=== PATIENT | female | born 2000 | race Two or more races ===

== ENCOUNTER 2024-07-03 00:58 | Emergency (ER) | payer MEDICAID, SELFPAY ==
[2024-07-03 00:59] VITALS: BMI 24.9
[2024-07-03 01:14] VITALS: BP 121/75; PULSE 82; RESP 18; TEMP 37.1; O2SAT 99
--- NOTE | 2024-07-03 01:23 | XR_ITS ---
Examination: Complete OB ultrasound, less than 14 weeks, transabdominal Date and time of exam: July 03, 2024 0241 hours INDICATIONS: Vaginal bleeding today Technique: Obstetrical ultrasound images less than 14 weeks performed via transabdominal imaging Findings: A normal shaped single intrauterine gestation is present in the uterus. CRL 1.9 cm corresponds to 8 weeks 3 days gestational age Cardiac motion 166 BPM Uterine fundal area of fibroid degeneration 3.7 cm Ultrasonographic survey of visible and placental structures unremarkable. Amniotic fluid volume appears appropriate for this estimated gestational age. Right ovary 3.1 cm arterial flow Left ovary obscured by bowel gas IMPRESSION: Viable intrauterine gestation 8 weeks 3 days.
[2024-07-03 02:08] LABS: Collection Type, Urine Clean Catch
[2024-07-03 02:11] LABS: Basophils % (Auto) 0 % (0-2.5); Eosinophils # (Auto) 0.1 Thou/mm3 (0.0-0.5); Eosinophils % (Auto) 1 % (0-10); Hematocrit 37.6 % (36.0-46.0); Hemoglobin 12.9 g/dL (12.0-16.0); Immature Granulocytes % (Auto) 0 % (0-0); Immature Granulocytes Auto 0.03 Thou/mm3 (0.00-0.00); Lymphocytes # (Auto) 2.1 Thou/mm3 (1.0-4.8); Lymphocytes % (Auto) 20 % (10-50); Mean Corpuscular HGB Conc 34.3 g/dl (31.0-37.0); Mean Corpuscular Hemoglobin 28.7 pg (25.0-35.0); Mean Corpuscular Volume 84 fL (80-100); Monocytes # (Auto) 0.6 Thou/mm3 (0.0-0.8); Monocytes % (Auto) 5 % (0-12); Neutrophils # (Auto) 7.8 Thou/mm3 (1.8-7.7); Neutrophils % (Auto) 73 % (37-80); Nucleated Red Blood Cell % 0 /100 WBC (0); Platelet Count 199 Thou/mm3 (140-440); RDW Standard Deviation 44.7 fL (36.4-46.3); Red Blood Count 4.49 Miln/mm3 (4.00-5.20); White Blood Count 10.7 Thou/mm3 (3.6-11.0)
[2024-07-03 02:27] LABS: Bacteria,Urine Rare; Bilirubin,Urine Negative (Negative); Blood,Urine 3+ (Negative); Clarity,Urine Turbid (Clear/Hazy); Color,Urine Colorless (Lt Yel-Yel); Glucose, Urine Negative (Negative); Ketones,Urine Trace (Negative); Leukocyte Esterase,Urine Positive (Negative); Nitrite,Urine Negative (Negative); PH,Urine 6.5 (5.0-7.0); Protein,Urine Negative (Neg - Trace); RBC,Urine 6 /hpf (0-3); Specific Gravity,Urine 1.005 (1.001-1.035); Squamous Epithelial Cell,Urine 4 /hpf (0-5); Urobilinogen,Urine Negative mg/dL (0.0-1.0); WBC,Urine 22 /hpf (0-5)
[2024-07-03 02:33] LABS: Alanine Aminotransferase 25 U/L (10-49); Albumin, Serum 4.8 gm/dL (3.5-5.0); Albumin/Globulin Ratio 1.5 (1.2-2.2); Alkaline Phosphatase 51 U/L (46-116); Anion Gap 11 (7-16); Aspartate Amino Transferase 22 U/L (0-34); BUN/Creatinine Ratio 8 Ratio (12-20); Bilirubin,Total 0.5 mg/dL (0.3-1.2); Blood Urea Nitrogen 5 mg/dL (9-23); Calcium 10.2 mg/dL (8.3-10.6); Calcium (Corrected) 10.2 mg/dL (8.5-10.1); Chloride 106 mMol/L (98-107); Creatinine (Component) 0.6 mg/dL (0.6-1.3); Estimated Creatinine Clearance 136.1 mL/min (>60); Globulin 3.1 gm/dL (2.3-3.5); Glucose 90 mg/dL (74-106); Osmolality,Calculated 274 (275-295); Potassium 3.5 mMol/L (3.4-5.1); Sodium 139 mMol/L (136-145); Total Protein 7.9 gm/dL (5.7-8.2); eGFR > 60 See Note
[2024-07-03 03:19] LABS: Beta HCG,Quantitative 128023 mIU/mL (<5.0)
--- NOTE | 2024-07-03 04:01 | PD.EDVAGBL ---
ED OB Contraction Preg RMI/HPI General Chief complaint: Urogenital-Female Stated complaint: VAGINAL BLEEDING 8WEEKS PREG Time Seen by Provider: 07/03/24 01:23 Arrival date/time: 07/03/24 00:58 24F at approximately 8 weeks and with no significant PMH presents to ED with 2 days of pelvic cramping and vaginal spotting. Patient denies dysuria. Limitations: no limitations Related Data Allergies Allergy/AdvReac Type Severity Reaction Status Date / Time NKA* Allergy Uncoded 02/07/15 18:22 Review of Systems Review of Systems Systems Reviewed: All systems reviewed, normal except as documented Constitutional Constitutional: Reports system reviewed and no additional complaints, except as documented, Denies fever(s) and Denies headache(s) ENT Ears, Nose, Mouth, and Throat: Denies disequilibrium and Denies headache(s) Cardiovascular Cardiovascular: Reports system reviewed and no additional complaints, except as documented, Denies chest pain and Denies dyspnea Respiratory Respiratory: Reports system reviewed and no additional complaints, except as documented, Denies cough and Denies dyspnea Gastrointestinal Gastrointestinal: Reports system reviewed and no additional complaints, except as documented, Denies abdominal pain, Denies nausea and Denies vomiting Genitourinary Genitourinary: Reports as per HPI, Reports abnormal vaginal bleeding and Reports pelvic pain Neurologic Neurologic: Reports system reviewed and no additional complaints, except as documented, Denies confusion, Denies disequilibrium and Denies headache(s) Psychiatric Psychiatric: Denies confusion Past Medical History Social History SMOKING STATUS: Never smoker ED Exam General Limitations: Present no limitations General appearance: Present alert and in no apparent distress Head Head exam: Present atraumatic Eye Eye exam: Present normal appearance, PERRL and EOMI ENT ENT exam: Present normal exam, normal oropharynx and mucous membranes moist Neck Neck exam: Present normal inspection, full ROM and trachea midline Chest Chest inspection: Present normal inspection and symmetric chest wall rise Respiratory Respiratory exam: Present normal lung sounds bilaterally Cardiovascular Cardiovascular exam: Present regular rate, normal rhythm and normal heart sounds Abdominal Exam Abdominal exam: Present soft and normal bowel sounds Extremities Exam Extremities exam: Present normal inspection and full ROM Back Exam Back exam: Present normal inspection and full ROM Neurological Exam Neurological exam: Present alert, oriented X3 and CN II-XII intact Psychiatric Psychiatric exam: Present normal affect and normal mood Skin Skin exam: Present warm, dry, intact and normal color Course Quality Measures none Orders Category Date Time Status US OB <= 14 weeks fetus Stat Exams 07/03/24 01:23 Taken ABO/RH Type Stat Lab 07/03/24 01:38 Completed Beta HCG,Quantitative Stat Lab 07/03/24 01:38 Completed CBC Stat Lab 07/03/24 01:38 Completed CMP [Comprehensive Metabolic Panel] Stat Lab 07/03/24 01:38 Completed UA [Urinalysis] Stat Lab 07/03/24 02:02 Completed Urine Culture Stat Lab 07/03/24 02:02 Received Vital Signs Vital signs: Vital Signs Temperature 98.7 F 07/03/24 01:14 Pulse Rate 82 07/03/24 01:14 Respiratory Rate 18 07/03/24 01:14 Blood Pressure 121/75 07/03/24 01:14 Pulse Oximetry (%) 99 07/03/24 01:14 Oxygen Delivery Method Room Air 07/03/24 01:14 O2 at 99% on RA and WNLs Vaginal Bleeding MDM Narrative MDM Narrative: 24F at approximately 8 weeks and with no significant PMH presents to ED with 2 days of pelvic cramping and vaginal spotting. Patient denies dysuria. Physical exam reveals no pelvic tenderness. Patient is afebrile, calm, and alert. No leukocytosis or anemia. CMP unremarkable. Beta HCG WNLs. UA some WBCs with pending UC. Patient has access to online portal. US shows normal IUP with normal FHR. There is also a separate non-specific solid 3 cm mass in uterus based on [facility] report. Spoke to Dr. Stuart, OBGYN, who agrees it is likely a fibroid. No MRI needed at this time. [employer] given. Patient data External records reviewed:: None Clinical information provided by:: patient Social determinants that could affect healthcare access:: none Patient has the following chronic illnesses:: none How is presenting disease/condition affected by chronic disease/condition?: no chronic disease Evaluation data The following diagnostics were reviewed and interpreted by me:: lab results and radiology exam(s) Lab and/or radiology exams considered but not ordered:: ordered Interpretation Summary: above Medications / Prescriptions Medications or Prescriptions considered but not ordered:: not ordered Medication administrations:: n/a Consultations Consultation(s) initiated? (list below): Yes Diagnosis Vaginal Bleeding Differential Diagnosis: missed , threatened , dysfunctional uterine bleeding, menometrorrhagia, incomplete , ectopic without intrauterine , vaginal bleeding and other (pelvic mass) Most likely diagnosis given after review of the tests above:: pelvic mass and vaginal bleeding. Admission Indicated Admission indicated?: not indicated Admission Request Was there a request for admission?: No Disposition Plan Disposition Plan: Discharge Discharge Attestation Discharge Attestation: The patient and all family members were given an opportunity to ask questions and understood the discharge instructions. Discharge instructions specifically effects, indications for sooner follow up or return to the emergency department, and the expected course of current diagnosis. Patient condition: Stable Discharge Plan Plan Patient Disposition: HOME (Self Care) Disposition Comment: Stable Prescriptions/Referrals Referrals: No Primary/Family,Physician [Primary Care Provider] - In 1 week Problem List Clinical Impression: Vaginal bleeding, Pelvic mass Patient/Caregiver Discharge Instructions Education Materials: Understanding Uterine Bleeding Additional Instructions: Please follow-up with PCP/OBGYN within 24-48 hours and return immediately if symptoms worsen. Mass is most likely a fibroid. Print Language: [place] Islander Stand Alone Forms: Patient Portal Info Letter DARNELL/GUILLE Supervising Physician RICH Supervising Physician: Dr. Fritz
--- NOTE | 2024-07-03 04:35 | PRELIM_ITS ---
Obstetric ultrasound (transabdominal ) with doppler and wave doppler spectral analysis. July 03, 2024 at 0241 hours Clinical history: Cramping/bleeding; 8 weeks. Technique: Real-time ultrasound was performed using Duplex scanning including arterial inflow, venous outflow, color and spectral Doppler analysis of both ovaries. Comparison: No prior study is available for comparison. Findings: There is an intrauterine gestation with a single live fetus of mean gestational age 8 weeks and 3 days (CRL= 1.9 cm). cardiac activity is present at heart rate of 166 beats per minute. The yolk sac is visualized. Solid mass at the uterine fundus measuring 2.9 x 3.7 x 3.1 cm. The uterus measures 9.5 x 6.0 x 6.6 cm. The right ovary measures 3.1 x 2.2 x 2.3 cm and is unremarkable. The left ovary was not visualized. Normal blood flow in the right ovary with normal wave Doppler spectral analysis. There is no free fluid in the pelvis. Impression: Intrauterine gestation with a single live fetus of mean gestational age 8 weeks and 3 days. Solid mass at the uterine fundus measuring 2.9 x 3.7 x 3.1 cm. Further evaluation should be considered. Report Electronically Signed By: Alex Clinton 07/03/2024 4:34:57 AM [EST]
== END 2024-07-03 04:59 | disposition home or self-care (01) ==
PROVIDERS: Physician Assistant; Emergency Provider Emergency Medicine
DX: O20.9 Hemorrhage in early pregnancy, unspecified (principal); D25.9 Leiomyoma of uterus, unspecified; Z3A.08 8 weeks gestation of pregnancy
CPT/HCPCS: 36415; 76801; 80053; 81001; 84702; 85025; 86900; 86901; 87086; 99284

== ENCOUNTER 2025-01-10 14:18 | Observation (INO) | payer MEDICAID, SELFPAY ==
[2025-01-10] VITALS (23 sets, daily range): BP systolic 116; BP diastolic 76; PULSE 68–106; RESP 20–98; TEMP 37; O2SAT 97–100; BMI 26.4
--- NOTE | 2025-01-10 14:52 | XR_ITS ---
Examination: Complete OB ultrasound greater than 14 weeks Date and time of exam: January 10, 2025, 1502 hrs. Indications: Lower back pelvic pain beginning today, labor evaluation Findings: Viable intrauterine single fetus with single amniotic sac presentation cephalic Cardiac motion 131 BPM. Placenta anterior grade 3. Umbilical cord insertion seen. Amniotic fluid index 8.7 cm. Cervix obscured by the fetus. Ovaries obscured by bowel gas. Composite estimated gestational age based on BPD, head circumference, abdominal circumference, femur length is 35 weeks 1 day Estimated weight 2595.9 g. Survey of intracranial anatomy, spinal anatomy, abdominal anatomy, four-chamber heart performed with no abnormalities identified. Impression: Viable intrauterine gestation cephalic presentation.
--- NOTE | 2025-01-10 15:56 | ESHP_ITS ---
RE: ZOFIA FERGUSON : 2000 DATE OF TRIAGE: 01/10/2025 HISTORY OF PRESENT ILLNESS: This is a 24-year-old 1, para 0 with due date 02/07 with intrauterine at 36 weeks and 0 days who presents complaining of contractions and is noted to have contractions on the monitor and a cervix of 3 cm. She denies any leaking or bleeding. She reports normal movement. Her care was complicated by gestational thrombocytopenia and lower extremity edema without preeclampsia and normal blood pressures. ALLERGIES: NO KNOWN DRUG ALLERGIES. MEDICATIONS: 1. multivitamin 1 p.o. daily. 2. Omeprazole 20 mg 1 p.o. daily, p.r.n. heartburn. 3. Ferrous sulfate 325 mg 1 p.o. daily. PAST MEDICAL HISTORY: Gestational thrombocytopenia, lower extremity edema, iron deficiency anemia, gastroesophageal reflux disease, constipation, rubella nonimmune, vitamin D deficiency. ALLERGIES: NO KNOWN DRUG ALLERGIES. PAST SURGICAL HISTORY: Denies. FAMILY HISTORY: Denies. REVIEW OF SYSTEMS: She denies any chest pain, palpitations, cough, fever, or shortness of breath or lower extremity pain. She denies any headache, change of vision or right upper quadrant pain. PHYSICAL EXAMINATION: VITAL SIGNS: Blood pressure 122/80, heart rate 88, respirations 18, temperature 98.2. HEENT: Oropharynx and sclerae are clear. LUNGS: Clear to auscultation bilaterally. HEART: Regular rate and rhythm. ABDOMEN: Gravid consistent with estimated weight of 6 pounds. PELVIC: See RN notes. EXTREMITIES: Nontender. SKIN: No gross rashes or lesions. NEUROLOGIC: No focal deficit. ASSESSMENT: Intrauterine at 36 weeks and 0 days, early labor versus false labor. PLAN: Ultrasound to confirm presentation. Monitor for cervical change. Pending subsequent results. DT: 15:07:59 TT: 15:54:00 Ref: [id number] - TID: [id number] MTDD
== END 2025-01-10 18:45 | disposition home or self-care (01) ==
PROVIDERS: Admitting Provider Specialist; Visit Provider Specialist
DX: O47.03 False labor before 37 completed weeks of gestation, third trimester (principal); O99.113 Other diseases of the blood and blood-forming organs and certain disorders involving the immune mechanism complicating pregnancy, third trimester; D69.6 Thrombocytopenia, unspecified; O12.03 Gestational edema, third trimester; Z3A.36 36 weeks gestation of pregnancy
CPT/HCPCS: 59025; 59899; 76805

== ENCOUNTER 2025-01-18 23:19 | Observation (INO) | payer MEDICAID, SELFPAY ==
[2025-01-18] VITALS (8 sets, daily range): BP systolic 134; BP diastolic 83; PULSE 75–94; RESP 19–98; TEMP 36.8; O2SAT 96–99
[2025-01-19] VITALS (13 sets, daily range): BP systolic 102–114; BP diastolic 57–70; PULSE 59–115; RESP 17–18; TEMP 36.8–36.9; O2SAT 96–99; BMI 27.3
[2025-01-19] MEDS: RINGERS LACTATED 1000 ML 1,000 ML 100 ML IV (03:22)
[2025-01-19 03:47] LABS: Collection Type, Urine Clean Catch
[2025-01-19 03:51] LABS: Basophils # (Auto) 0.0 Thou/mm3 (0.0-0.2); Basophils % (Auto) 0 % (0-2.5); Eosinophils # (Auto) 0.1 Thou/mm3 (0.0-0.5); Eosinophils % (Auto) 1 % (0-10); Hematocrit 31.2 % (36.0-46.0); Hemoglobin 10.3 g/dL (12.0-16.0); Immature Granulocytes Auto 0.04 Thou/mm3 (0.00-0.00); Lymphocytes # (Auto) 1.4 Thou/mm3 (1.0-4.8); Lymphocytes % (Auto) 16 % (10-50); Mean Corpuscular HGB Conc 33.0 g/dl (31.0-37.0); Mean Corpuscular Hemoglobin 29.1 pg (25.0-35.0); Mean Corpuscular Volume 88 fL (80-100); Monocytes # (Auto) 0.6 Thou/mm3 (0.0-0.8); Monocytes % (Auto) 7 % (0-12); Neutrophils # (Auto) 6.2 Thou/mm3 (1.8-7.7); Neutrophils % (Auto) 75 % (37-80); Nucleated Red Blood Cell # 0.00 Thou/mm3 (0.00-0.00); Nucleated Red Blood Cell % 0 /100 WBC (0); Platelet Count 140 Thou/mm3 (140-440); RDW Standard Deviation 45.9 fL (36.4-46.3); Red Blood Count 3.54 Miln/mm3 (4.00-5.20); White Blood Count 8.3 Thou/mm3 (3.6-11.0)
[2025-01-19 04:09] LABS: Bacteria,Urine Rare; Bilirubin,Urine Negative (Negative); Blood,Urine Negative (Negative); Clarity,Urine Clear (Clear/Hazy); Color,Urine Lt-Yellow (Lt Yel-Yel); Glucose, Urine Negative (Negative); Ketones,Urine Negative (Negative); Leukocyte Esterase,Urine Positive (Negative); Nitrite,Urine Negative (Negative); PH,Urine 7.0 (5.0-7.0); Protein,Urine Negative (Neg - Trace); RBC,Urine 1 /hpf (0-3); Specific Gravity,Urine 1.016 (1.001-1.035); Squamous Epithelial Cell,Urine 2 /hpf (0-5); Urobilinogen,Urine Negative mg/dL (0.0-1.0); WBC,Urine 7 /hpf (0-5)
--- NOTE | 2025-01-19 04:09 | PC.NURSE ---
01/19/25 RN called to room due to patient having questions about possible going home. Patient states her contractions and pain has gone down, she feels better. Patient requested to hold epidural at this time. IV bolus stopped per patient request. Education provided about labor process. Patient states she had sex prior to coming to [facility] yesterday. She states last time she came to triage on 01/10/25 was due to contractions after having sex. MD will be making morning rounds in the am. Patient states she will wait to speak with MD about going home in the morning if she does not go into labor.
[2025-01-19 04:18] LABS: Fibrinogen 423 mg/dL (175-375); INR 0.9 (0.9-1.3); Partial Thromboplastin Time 25.7 Seconds (22.0-36.0); Prothrombin Time 9.8 Seconds (9.0-12.2)
[2025-01-19 04:19] LABS: Sperm,Urine Present
[2025-01-19 04:23] LABS: Alanine Aminotransferase 8 U/L (10-49); Albumin, Serum 3.7 gm/dL (3.5-5.0); Albumin/Globulin Ratio 1.5 (1.2-2.2); Alkaline Phosphatase 150 U/L (46-116); Anion Gap 11 (7-16); Aspartate Amino Transferase 17 U/L (0-34); BUN/Creatinine Ratio 8 Ratio (12-20); Bilirubin,Total 0.3 mg/dL (0.3-1.2); Blood Urea Nitrogen 5 mg/dL (9-23); Calcium 8.5 mg/dL (8.3-10.6); Calcium (Corrected) 8.7 mg/dL (8.5-10.1); Carbon Dioxide 22.6 mMol/L (20.0-31.0); Chloride 110 mMol/L (98-107); Creatinine (Component) 0.6 mg/dL (0.6-1.3); Estimated Creatinine Clearance 142.0 mL/min (>60); Globulin 2.4 gm/dL (2.3-3.5); Glucose 91 mg/dL (74-106); LDH (Lactate Dehydrogenase) 174 U/L (120-246); Osmolality,Calculated 284 (275-295); Potassium 3.7 mMol/L (3.4-5.1); Sodium 144 mMol/L (136-145); Total Protein 6.1 gm/dL (5.7-8.2); Uric Acid 5.2 mg/dL (3.1-7.8); eGFR > 60 See Note
--- NOTE | 2025-01-19 08:23 | PD.LDPN ---
Documentation for date of: 01/19/25 OB Labor Progress Note Pain Control Comments: Pelvic Exam Dilation (cm): 4 Effacement (%): 90 station: -1 Amniotic membrane status: Intact Contractions Monitor mode: External Contraction frequency: 4-6 Contraction intensity: Mild Status status: Category l Assessment and Plan Comments: No cervical change for the past several hours consistent with False Labor Patient feels comfortable and wants to go home therefore we will discharge her home. Advised to return if any leaking of fluid, or persistent contractions, or vaginal bleeding or decreased movement.
--- NOTE | 2025-01-19 08:25 | PD.LDDS ---
DS: Providers Provider Date of admission: 01/19/25 02:35 Primary care physician: Physician No Primary/Family Admitting Provider: Rylan Borrego MD Attending Provider on Admission: Rylan Borrego MD Attending Provider on DC: Rylan Borrego MD Discharging Provider: Rylan Borrego MD DS: Diagnosis Discharge Diagnosis (1) False labor at or after 37 completed weeks of gestation: Status: Acute Problem List Completed Was Problem List Reviewed/Reconciled?: Yes Summary/Hosp Course Time Spent with Patient Time attestation: Total time spent providing and/or coordinating discharge services: Exam Vital Signs Temp Pulse Resp BP Pulse Ox O2 Del Method 98.3 F 76 18 106/70 97 Room Air 01/19/25 07:30 01/19/25 07:36 01/19/25 07:30 01/19/25 07:36 01/19/25 05:05 01/19/25 07:30 Discharge Plan Plan Patient Disposition: HOME (Self Care) Patient condition on transfer: Stable Prescriptions/Referrals Prescriptions/Med Rec: No Action ferrous sulfate 325 mg (65 mg iron) tablet 325 mg PO QDAY Patient Comments: TAKE 1 TABLET BY MOUTH EVERY DAY PNV no.95-ferrous fumarate-FA [] 28 mg iron- 800 mcg tablet 1 tab PO QDAY Patient Comments: TAKE 1 TABLET BY MOUTH EVERY DAY FOR 90 DAYS cholecalciferol (vitamin D3) 25 mcg (1,000 unit) tablet 25 mcg PO DAILY Patient Comments: TAKE 1 TABLET BY MOUTH EVERY DAY Referrals: No Primary/Family,Physician [Primary Care Provider] Patient/Caregiver Discharge Instructions Education Materials: Antepartum Discharge Print Language: Kittitian Stand Alone Forms: [employer] Info., Patient Portal Info Letter Discharge Order Discharge Orders: Discharge (Routine); Ordered 01/19/25 Ordered By: Rylan Borrego Planned Discharge Date 01/19/25
[2025-01-19 11:46] LABS: Syphilis Nonreactive (Nonreactive)
== END 2025-01-19 08:15 | disposition home or self-care (01) ==
PROVIDERS: Admitting Provider Specialist; Visit Provider Specialist
DX: O47.1 False labor at or after 37 completed weeks of gestation (principal); Z3A.37 37 weeks gestation of pregnancy
CPT/HCPCS: 36415; 59025; 59899; 80053; 81001; 83615; 84550; 85025; 85384; 85610; 85730; 86780; 86850; 86900; 86901; G0378; J7120

== ENCOUNTER 2025-01-25 23:23 | Observation (INO) | payer MEDICAID, SELFPAY ==
--- NOTE | 2025-01-19 15:02 | ESHP_ITS ---
RE: ZOFIA FERGUSON : 2000 DATE OF ADMISSION: 01/28/2025 HISTORY OF PRESENT ILLNESS: This is a 24-year-old 1 para 0 with due date of 02/07/2025 with intrauterine at 38 weeks and 4 days, who presents to the office today complaining of contractions and is noted to be 6 cm dilated with contractions every 2-3 minutes. She denies any leaking or bleeding. She reports normal movement. Her care was complicated by gestational thrombocytopenia with platelet count as low as 131,000. She also has iron deficiency anemia. ALLERGIES: NO KNOWN DRUG ALLERGIES. MEDICATIONS: 1. multivitamin 1 p.o. daily. 2. Ferrous sulfate 325 mg 1 p.o. daily. 3. Omeprazole 20 mg 1 p.o. daily p.r.n. heartburn. 4. vitamin 1 p.o. daily. FAMILY HISTORY: Denies. PAST SURGICAL HISTORY: Denies. REVIEW OF SYSTEMS: She denies any chest pain, palpitations, cough, fever, shortness of breath or lower extremity pain. She denies any headache, change of vision or right upper quadrant pain. PHYSICAL EXAMINATION: VITAL SIGNS: Blood pressure is 134/82, heart rate 88, respiration 18, and temperature 98.6. HEENT: Oropharynx and sclerae are clear. LUNGS: Clear to auscultation bilaterally. HEART: Regular rate and rhythm. ABDOMEN: Gravid consistent with estimated weight 2700 g. PELVIC: 6.5/100/0/vtx/AROM clear. EXTREMITIES: Nontender. SKIN: No gross rashes or lesions. NEUROLOGICAL: No focal deficit. ASSESSMENT AND PLAN: Intrauterine at 38 weeks and 4 days, Active Labor. Anticipate . Informed consent obtained. Patient aware of the risks , complications, alternatives and benefits of OVD and C/S and agrees with these mode of delivery if indicated. DT: 05:59:13 TT: 06:20:00 Ref: [id number] - TID: [id number] [facility]
[2025-01-25 23:28] VITALS: BP 129/79; PULSE 72; RESP 19; RESP 98; TEMP 37.3; BMI 28.3
[2025-01-25 23:40] VITALS: BP 129/79; PULSE 71; PULSE 73; O2SAT 98
[2025-01-25 23:45] VITALS: PULSE 67; O2SAT 99
[2025-01-25 23:50] VITALS: PULSE 69; O2SAT 98
[2025-01-25 23:55] VITALS: PULSE 80; O2SAT 100
[2025-01-25 23:58] VITALS: PULSE 70; O2SAT 93
[2025-01-26] VITALS (18 sets, daily range): BP systolic 114–120; BP diastolic 59–74; PULSE 65–83; RESP 16; TEMP 36.6–36.9; O2SAT 91–100; BMI 28.3
[2025-01-26 02:44] LABS: Basophils # (Auto) 0.0 Thou/mm3 (0.0-0.2); Basophils % (Auto) 0 % (0-2.5); Eosinophils # (Auto) 0.0 Thou/mm3 (0.0-0.5); Eosinophils % (Auto) 0 % (0-10); Hematocrit 31.3 % (36.0-46.0); Hemoglobin 10.3 g/dL (12.0-16.0); Immature Granulocytes Auto 0.03 Thou/mm3 (0.00-0.00); Lymphocytes # (Auto) 1.4 Thou/mm3 (1.0-4.8); Lymphocytes % (Auto) 14 % (10-50); Mean Corpuscular HGB Conc 32.9 g/dl (31.0-37.0); Mean Corpuscular Hemoglobin 28.7 pg (25.0-35.0); Mean Corpuscular Volume 87 fL (80-100); Monocytes # (Auto) 0.7 Thou/mm3 (0.0-0.8); Monocytes % (Auto) 7 % (0-12); Neutrophils # (Auto) 7.8 Thou/mm3 (1.8-7.7); Neutrophils % (Auto) 79 % (37-80); Nucleated Red Blood Cell # 0.00 Thou/mm3 (0.00-0.00); Nucleated Red Blood Cell % 0 /100 WBC (0); Platelet Count 137 Thou/mm3 (140-440); RDW Standard Deviation 44.3 fL (36.4-46.3); Red Blood Count 3.59 Miln/mm3 (4.00-5.20); White Blood Count 9.9 Thou/mm3 (3.6-11.0)
[2025-01-26 03:22] LABS: Syphilis Nonreactive (Nonreactive)
--- NOTE | 2025-01-26 03:39 | PD.LDHP ---
Documentation for date of: 01/26/25 OB Labor/Induct. HPI History of Present Illness History of present illness: RE: ZOFIA FERGUSON : 2000 DATE OF ADMISSION: 01/17/2025 HISTORY OF PRESENT ILLNESS: This is a 24-year-old 1 para 0 with due date of 02/07/2025 with intrauterine at 38 weeks and 2 days, who presents to labor and delivery complaining of contractions and is noted to be 3 cm dilated with contractions every 2-3 minutes. She denies any leaking or bleeding. She reports normal movement. Her care was complicated by gestational thrombocytopenia with platelet count as low as 131,000. She also has iron deficiency anemia. ALLERGIES: NO KNOWN DRUG ALLERGIES. MEDICATIONS: 1. multivitamin 1 p.o. daily. 2. Ferrous sulfate 325 mg 1 p.o. daily. 3. Omeprazole 20 mg 1 p.o. daily p.r.n. heartburn. 4. vitamin 1 p.o. daily. FAMILY HISTORY: Denies. PAST SURGICAL HISTORY: Denies. REVIEW OF SYSTEMS: She denies any chest pain, palpitations, cough, fever, shortness of breath or lower extremity pain. She denies any headache, change of vision or right upper quadrant pain. PHYSICAL EXAMINATION: VITAL SIGNS: Blood pressure is 134/82, heart rate 88, respiration 18, and temperature 98.6. HEENT: Oropharynx and sclerae are clear. LUNGS: Clear to auscultation bilaterally. HEART: Regular rate and rhythm. ABDOMEN: Gravid consistent with estimated weight 2800 g. PELVIC: See RN notes. EXTREMITIES: Nontender. SKIN: No gross rashes or lesions. NEUROLOGICAL: No focal deficit. ASSESSMENT AND PLAN: Intrauterine at 38 weeks and 2 days, early labor v. False Labor. Monitor for cervical change and determine if she will stay or go home. DT: 05:59:13 TT: 06:20:00 Ref: [id number] - TID: [id number] Labs Labs: Negative: RPR, Hepatitis B, Rubella Titre, HIV, Chlamydia, Gonorrhea and Group Beta Strep and Unknown: Herpes Type 1, Herpes Type 2 and Covid-19 Meds Home Medications and Allergies Home Medications ?Medication ?Instructions ?Recorded ?Confirmed ?Type ferrous sulfate 325 mg (65 mg 325 mg PO QDAY 01/10/25 01/26/25 History iron) tablet vit no.95-ferrous 1 tab PO QDAY 01/10/25 01/26/25 History fumarate 28 mg-folic acid 800 mcg tablet () cholecalciferol (vitamin D3) 25 25 mcg PO DAILY 01/18/25 01/26/25 History mcg (1,000 unit) tablet Allergies Allergy/AdvReac Type Severity Reaction Status Date / Time No Known Allergies Allergy Verified 01/26/25 00:12 OB Exam Physical Exam Vital signs: Temp Pulse Resp BP Pulse Ox 99.1 F 80 19 114/59 L 98 01/25/25 23:28 01/26/25 02:12 01/25/25 23:28 01/26/25 02:12 01/26/25 01:00 OB Results Labs 01/26/25 00:20 Labs: Short CBC 01/26/25 Range/Units 00:20 WBC 9.9 (3.6-11.0) Thou/mm3 Hgb 10.3 L (12.0-16.0) g/dL Hct 31.3 L (36.0-46.0) % Plt Count 137 L (140-440) Thou/mm3
--- NOTE | 2025-01-26 07:36 | PD.LDPN ---
Documentation for date of: 01/26/25 OB Labor Progress Note Pelvic Exam Dilation (cm): 4 Effacement (%): 90 station: 0 Amniotic membrane status: Intact Contractions Monitor mode: External Contraction frequency: Occasional Contraction intensity: Moderate Status status: Category l Assessment and Plan Comments: False labor versus early labor
== END 2025-01-26 09:17 | disposition home or self-care (01) ==
PROVIDERS: Admitting Provider Specialist; Visit Provider Specialist
DX: O47.1 False labor at or after 37 completed weeks of gestation (principal); O99.113 Other diseases of the blood and blood-forming organs and certain disorders involving the immune mechanism complicating pregnancy, third trimester; D69.6 Thrombocytopenia, unspecified; O99.013 Anemia complicating pregnancy, third trimester; D50.9 Iron deficiency anemia, unspecified; Z3A.38 38 weeks gestation of pregnancy; Z79.899 Other long term (current) drug therapy
CPT/HCPCS: 36415; 59899; 85025; 86780; 86850; 86900; 86901; G0378

== ENCOUNTER 2025-01-28 10:32 | Inpatient (IN) | payer MEDICAID, SELFPAY ==
[2025-01-28] VITALS (108 sets, daily range): BP systolic 108–146; BP diastolic 60–99; PULSE 64–128; RESP 13–22; TEMP 36.8–37.3; O2SAT 89–100; BMI 28.3
[2025-01-28 12:26] LABS: Basophils # (Auto) 0.0 Thou/mm3 (0.0-0.2); Basophils % (Auto) 0 % (0-2.5); Eosinophils # (Auto) 0.1 Thou/mm3 (0.0-0.5); Eosinophils % (Auto) 1 % (0-10); Hematocrit 31.6 % (36.0-46.0); Hemoglobin 10.5 g/dL (12.0-16.0); Immature Granulocytes Auto 0.03 Thou/mm3 (0.00-0.00); Lymphocytes # (Auto) 1.6 Thou/mm3 (1.0-4.8); Lymphocytes % (Auto) 21 % (10-50); Mean Corpuscular HGB Conc 33.2 g/dl (31.0-37.0); Mean Corpuscular Hemoglobin 29.0 pg (25.0-35.0); Mean Corpuscular Volume 87 fL (80-100); Monocytes # (Auto) 0.5 Thou/mm3 (0.0-0.8); Monocytes % (Auto) 6 % (0-12); Neutrophils # (Auto) 5.3 Thou/mm3 (1.8-7.7); Neutrophils % (Auto) 71 % (37-80); Nucleated Red Blood Cell # 0.00 Thou/mm3 (0.00-0.00); Nucleated Red Blood Cell % 0 /100 WBC (0); Platelet Count 136 Thou/mm3 (140-440); RDW Standard Deviation 44.4 fL (36.4-46.3); Red Blood Count 3.62 Miln/mm3 (4.00-5.20); White Blood Count 7.5 Thou/mm3 (3.6-11.0)
[2025-01-28 13:01] LABS: Syphilis Nonreactive (Nonreactive)
[2025-01-28] MEDS: RINGERS LACTATED 1000 ML 1,000 ML 100 ML IV (13:10)
--- NOTE | 2025-01-28 15:32 | PD.LDPN ---
Documentation for date of: 01/28/25 OB Labor Progress Note Pain Control Comments: Epidural Pelvic Exam Dilation (cm): 10 Effacement (%): 100 station: +2 Amniotic membrane status: Ruptured Contractions Monitor mode: External Contraction frequency: 4-7 Contraction intensity: Moderate Status status: Category l Assessment and Plan Comments: Encourage Pushing Anticipate History of Present Illness HPI Feels alot of pressure in pelvis with contractions
[2025-01-28] MEDS: MINERAL OIL 30 ML UDC TOP (16:10)
[2025-01-28] MEDS: OXYTOCIN in NS 20 units 20 UNIT/1,000 ML BAG 125 UNIT IV ×2 (16:14→17:10)
[2025-01-28] MEDS: BENZO/LANO/ALOE (Dermoplast) 60 GM CAN 1 SPRAY TOP (16:15)
[2025-01-28] MEDS: METHYLERGONOVINE INJ 0.2 MG/ML VIAL IM (16:20)
--- NOTE | 2025-01-28 16:41 | PD.LDHP ---
Documentation for date of: 01/28/25 OB Labor/Induct. HPI History of Present Illness : 1 Para: 0 Term pregnancies: 0 pregnancies: 0 Living children: 0 History of Abortions: Spontaneous and Elective: 0 History of sections: No History of : No Date of last menstrual period: 05/03/24 THANG: 02/07/25 Gestational Age (weeks): 38 Gestational Age (days): 4 Gestational age based on last menstrual period: 38 History of present illness: H and P dictated STAT IN [place] Comments: DATE OF ADMISSION: 01/17/2025 HISTORY OF PRESENT ILLNESS: This is a 24-year-old 1 para 0 with due date of 02/07/2025 with intrauterine at 38 weeks and 2 days, who presents to labor and delivery complaining of contractions and is noted to be 6 cm dilated with contractions every 2-3 minutes. She denies any leaking or bleeding. She reports normal movement. Her care was complicated by gestational thrombocytopenia with platelet count as low as 131,000. She also has iron deficiency anemia. ALLERGIES: NO KNOWN DRUG ALLERGIES. MEDICATIONS: 1. multivitamin 1 p.o. daily. 2. Ferrous sulfate 325 mg 1 p.o. daily. 3. Omeprazole 20 mg 1 p.o. daily p.r.n. heartburn. 4. vitamin 1 p.o. daily. FAMILY HISTORY: Denies. PAST SURGICAL HISTORY: Denies. REVIEW OF SYSTEMS: She denies any chest pain, palpitations, cough, fever, shortness of breath or lower extremity pain. She denies any headache, change of vision or right upper quadrant pain. PHYSICAL EXAMINATION: VITAL SIGNS: Blood pressure is 134/82, heart rate 88, respiration 18, and temperature 98.6. HEENT: Oropharynx and sclerae are clear. LUNGS: Clear to auscultation bilaterally. HEART: Regular rate and rhythm. ABDOMEN: Gravid consistent with estimated weight 2800 g. PELVIC: See RN notes. EXTREMITIES: Nontender. SKIN: No gross rashes or lesions. NEUROLOGICAL: No focal deficit. ASSESSMENT AND PLAN: Intrauterine at 38 weeks and 4 days, Active Labor Labor Anticipate . Labs Labs: Negative: RPR, Hepatitis B, Rubella Titre, HIV, Chlamydia, Gonorrhea and Group Beta Strep and Unknown: Herpes Type 1, Herpes Type 2 and Covid-19 Past Medical History Surgical History SURGICAL: Negative Section Meds Home Medications and Allergies Home Medications ?Medication ?Instructions ?Recorded ?Confirmed ?Type ferrous sulfate 325 mg (65 mg 325 mg PO QDAY 01/10/25 01/26/25 History iron) tablet vit no.95-ferrous 1 tab PO QDAY 01/10/25 01/26/25 History fumarate 28 mg-folic acid 800 mcg tablet () cholecalciferol (vitamin D3) 25 25 mcg PO DAILY 01/18/25 01/26/25 History mcg (1,000 unit) tablet Allergies Allergy/AdvReac Type Severity Reaction Status Date / Time No Known Allergies Allergy Verified 01/26/25 00:12 OB Exam Physical Exam Vital signs: Temp Pulse Resp BP Pulse Ox O2 Del Method 98.9 F 71 19 124/72 100 Room Air 01/28/25 13:00 01/28/25 13:58 01/28/25 13:00 01/28/25 13:58 01/28/25 16:39 01/28/25 13:00 OB Results Labs 01/28/25 11:00 Labs: Short CBC 01/28/25 Range/Units 11:00 WBC 7.5 (3.6-11.0) Thou/mm3 Hgb 10.5 L (12.0-16.0) g/dL Hct 31.6 L (36.0-46.0) % Plt Count 136 L (140-440) Thou/mm3
--- NOTE | 2025-01-28 16:45 | PD.ADDHP ---
Addendum History & Physical Addendum Date of report being addended: 01/28/25 Narrative: Date of Admission on H and P should be 01/28/25 and not 01/17/2025.
[2025-01-28] MEDS: ceFAZolin/D5W 2 GM IV 2 GM/100 ML BAG IV ×2 (17:12→19:36)
--- NOTE | 2025-01-28 17:27 | ESOP_ITS ---
Operative Note - [employer] Procedure Date of procedure: 01/28/25 Procedure Performed: Exam under anesthesia Uterine curettage Bakri Intrauterine Balloon Placement Indication: day #0 Status post spontaneous vaginal delivery hemorrhage due to uterine atony refractory to uterotonics Pre-Op diagnosis: day #0 Status post spontaneous vaginal delivery hemorrhage due to uterine atony refractory to uterotonics Post-Op diagnosis: day #0 Status post spontaneous vaginal delivery hemorrhage due to uterine atony refractory to uterotonics No retained products of conception Anesthesia type: General Procedure description: After proper verbal informed consent was obtained and the patient made aware of the risks, complications, alternatives and benefits of the proposed procedure she consented to proceed with the procedure.? She was prepped and draped in the usual sterile fashion. A timeout was performed. A weighted speculum was placed in the posterior fornix of the vagina. A Garcia retractor was placed in the anterior fornix of the vagina. A ring forcep was used to grasp the anterior lip of the cervix. A uterine curettage was performed with a banjo curette.? No placental tissue was obtained, just blood clots. ? She continued to bleed due to an atonic uterus.? She was given TXA. A Bakri intrauterine tampanode balloon was placed and inflated with 450 cc of normal saline and connected to LAURA drain.? A Kerlix roll was placed for vaginal packing.? A Moe catheter was placed and drained clear yellow urine.? She was given 2 gram of Ancef prior to initiation of the procedure for surgical prophylaxis.? All instruments were removed from the vagina. She was reversed from general anesthesia in the supine position and transferred to the recovery in stable condition. I discussed with the patient's family the nature of her condition, the intraoperative findings, the expectation for recovery, all questions were answered. Specimen: none Estimated blood loss (ml): 500 Findings: 20 weeks size mobile anteverted and boggy atonic uterus No retained products of conception No cervical or vaginal lacerations Complications: none Surgical staff SUE Huffman, DONNY Borrego Surgeon Operation Date: 01/28/25 16:45 <No data on this case meets the specified criteria> Diagnosis Discharge Diagnosis (1) (normal spontaneous vaginal delivery): Status: Acute (2) Uterine atony, , current hospitalization: Status: Acute (3) hemorrhage: Status: Acute Problem List Completed Was Problem List Reviewed/Reconciled?: Yes (3) hemorrhage Qualifiers: hemorrhage type: other immediate Qualified Code(s): O72.1 - Other immediate hemorrhage
--- NOTE | 2025-01-28 17:27 | PD.LDDS ---
DS: Providers Provider Date of admission: 01/28/25 10:32 Primary care physician: Adrien Prescott MD Admitting Provider: Rylan Borrego MD Attending Provider on Admission: Rylan Borrego MD Attending Provider on DC: Rylan Borrego MD Discharging Provider: Rylan Borrego MD DS: Diagnosis Problem List Completed Was Problem List Reviewed/Reconciled?: Yes Summary/Hosp Course Brief History: H and P dictated STAT IN Nuance Peripartum Data Delivery Method: Normal Vaginal Delivery Episiotomy Description: None Procedures: Procedures Operation Date: 01/28/25 16:45 <No data on this case meets the specified criteria> Time Spent with Patient Time attestation: Total time spent providing and/or coordinating discharge services: Exam Vital Signs Temp Pulse Resp BP Pulse Ox O2 Del Method 98.9 F 71 19 124/72 100 Room Air 01/28/25 13:00 01/28/25 13:58 01/28/25 13:00 01/28/25 13:58 01/28/25 16:44 01/28/25 13:00 Discharge Plan Plan Patient Disposition: HOME (Self Care) Patient condition on transfer: Stable Prescriptions/Referrals Prescriptions/Med Rec: No Action ferrous sulfate 325 mg (65 mg iron) tablet 325 mg PO QDAY Patient Comments: TAKE 1 TABLET BY MOUTH EVERY DAY PNV no.95-ferrous fumarate-FA [] 28 mg iron- 800 mcg tablet 1 tab PO QDAY Patient Comments: TAKE 1 TABLET BY MOUTH EVERY DAY FOR 90 DAYS cholecalciferol (vitamin D3) 25 mcg (1,000 unit) tablet 25 mcg PO DAILY Patient Comments: TAKE 1 TABLET BY MOUTH EVERY DAY Referrals: Adrien Prescott MD [Primary Care Provider, Family Practice] Patient/Caregiver Discharge Instructions Discharge Activity: activity as tolerated Other Discharge Activity Instructions:: Follow up office 6 weeks. Education Materials: After a Vaginal , After Delivery Concerns, Breast Care After , Incision Care After Vaginal Print Language: Belarusian Stand Alone Forms: [facility] Award Info., Patient Portal Info Letter Discharge Order Discharge Orders: Discharge (Routine); Ordered 01/30/25 Ordered By: Rylan Borrego Planned Discharge Date 01/30/25
--- NOTE | 2025-01-28 17:37 | OBDSUM_ITS ---
Data ([place]) Data Hx Section: No : 1 Term: 0 : 0 Livin Abortions: Spontaneous & Theraputic: 0 Delivery Data ([place]) Labor Data Initiation of labor: Augmentation Induction/Augmentation Agent: Pitocin and Artificial ROM ROM date: 01/28/25 ROM time: 11:41 Amniotic membrane rupture type: Artificial Amniotic fluid description: Clear Delivery Data EDC: 02/07/25 EDC calculated by:: LMP/early US confirmation Onset of labor date: 01/28/25 Onset of labor time: 12:00 Complete dilation date: 01/28/25 Complete dilation time: 15:10 [place] delivery date: 01/28/25 delivery time: 16:13 Gestational age (weeks): 38 Gestational age (days): 4 Placenta delivery date: 01/28/25 Placenta delivery time: 16:15 Stage 1 total time: Labor - Stage 1 Duration 3 hours and 10 minutes Delivered by: Rylan Borrego Delivery nurse: see RN notes [place] nurse: see RN notes Support person(s) at delivery: see RN notes Delivery Method Delivery method: Normal Vaginal Delivery Presentation: Vertex position: OA Anesthesia Type Anesthesia Type: Epidural Anesthesia type: General Placenta Placenta delivery description: Spontaneous Placenta Disposition: Sent to Pathology Cord blood sent to lab: Yes cord blood collection: Cord Blood Type Episiotomy Episiotomy description: None Lacerations #1: Perineal: 2nd degree Perineal repair Sutures used for repair: 3.0 Chromic EBL Estimated blood loss (ml): 500 Additional Procedures Uterine curettage Bakri Balloon Placement Due to hemorrhage secondary to uterine atony the patient was taken to the operating room: see operative report for details Complications Complications: Uterine atony hemorrhage Data ([place]) Data order: 1 's gender: Female Identification band number: [id number] weight (gms): 6 lb 12.291 oz Weight (pounds): 6 lbs and 12.3 ozs 1 minute: 8 5 minutes: 9 Additional Comments Additional comments: Please see RN notes for any additional information that may be missing from this delivery summary that the RN normally fills out.
[2025-01-28] MEDS: METHYLERGONOVINE 0.2 MG TABLET PO (19:41)
--- NOTE | 2025-01-28 21:10 | PC.NURSE ---
IN OB OR call received from lang interpreter Linda; In pts. vaginal delivery room 457, [address] FISCHER notified by Daija GEORGE prior to exiting OB OR of missing laps. Per does not want x-ray.
[2025-01-29] VITALS (9 sets, daily range): BP systolic 101–130; BP diastolic 65–86; PULSE 61–81; RESP 14–19; TEMP 37–37.6; O2SAT 96–98
[2025-01-29 00:13] LABS: Basophils # (Auto) 0.0 Thou/mm3 (0.0-0.2); Basophils % (Auto) 0 % (0-2.5); Eosinophils # (Auto) 0.0 Thou/mm3 (0.0-0.5); Eosinophils % (Auto) 0 % (0-10); Hematocrit 28.0 % (36.0-46.0); Hemoglobin 9.3 g/dL (12.0-16.0); Immature Granulocytes Auto 0.03 Thou/mm3 (0.00-0.00); Lymphocytes # (Auto) 0.9 Thou/mm3 (1.0-4.8); Lymphocytes % (Auto) 8 % (10-50); Mean Corpuscular HGB Conc 33.2 g/dl (31.0-37.0); Mean Corpuscular Hemoglobin 29.2 pg (25.0-35.0); Mean Corpuscular Volume 88 fL (80-100); Monocytes # (Auto) 0.7 Thou/mm3 (0.0-0.8); Monocytes % (Auto) 6 % (0-12); Neutrophils # (Auto) 10.3 Thou/mm3 (1.8-7.7); Neutrophils % (Auto) 86 % (37-80); Nucleated Red Blood Cell # 0.00 Thou/mm3 (0.00-0.00); Nucleated Red Blood Cell % 0 /100 WBC (0); Platelet Count 130 Thou/mm3 (140-440); RDW Standard Deviation 44.6 fL (36.4-46.3); Red Blood Count 3.19 Miln/mm3 (4.00-5.20); White Blood Count 12.0 Thou/mm3 (3.6-11.0)
[2025-01-29] MEDS: METHYLERGONOVINE 0.2 MG TABLET PO ×4 (00:21→18:11)
[2025-01-29] MEDS: OXYTOCIN in NS 20 units 20 UNIT/1,000 ML BAG 125 UNIT IV (02:13)
--- NOTE | 2025-01-29 07:00 | ESPR_ITS ---
RE: ZOFIA DOS SANTOS : 2000 DATE OF SERVICE: 01/29/2025 SUBJECTIVE: day 1, postop day 1. Patient denies any problem or complaints. She has got adequate urine output with Moe catheter in place. She denies any vaginal bleeding. She has adequate pain relief. She is tolerating a regular diet. She denies any nausea or vomiting. She denies any chest pain, palpitation, shortness of breath or lower extremity pain. OBJECTIVE: Vital Signs: Blood pressure is 112/74, heart rate 71, respiration 18, temperature is 98.6. Lungs: Clear to auscultation bilaterally. Cardiovascular: Heart regular rate and rhythm. Abdomen: Fundus is firm with Bakri balloon in place. Extremities: Nontender. LABORATORY DATA: Hemoglobin pre-delivery is 10.5, post-delivery is 9.3. ASSESSMENT: day 1 status post spontaneous vaginal delivery, postoperative day 1 status post uterine curettage and Bakri balloon placement for uterine atony. PLAN: Remove Bakri balloon this afternoon and Moe catheter at the same time. If no significant vaginal bleeding, patient will be able to ambulate and be observed overnight with possible discharge home tomorrow. DT: 06:29:57 TT: 06:58:00 Ref: [id number] - TID: [id number]
[2025-01-29] MEDS: DOCUSATE SOD 100 MG CAPSULE PO (08:16)
[2025-01-29] MEDS: KETOROLAC INJ 30 MG/ML VIAL IVP (09:44)
[2025-01-29] MEDS: IBUPROFEN TAB 400 MG TABLET 800 MG PO (16:42)
--- NOTE | 2025-01-29 16:44 | XR_ITS ---
EXAMINATION: AP pelvis single view TECHNIQUE: AP portable supine pelvis single view Date and time: January 29, 2025, 1658 hours INDICATIONS: Raytech gauze miscount FINDINGS: No opaque foreign body noted in the pelvis Rectal tube IMPRESSION: No opaque foreign body
--- NOTE | 2025-01-29 16:48 | PD.LDPPPRG ---
Subjective Subjective Interval history: Time to remove Bakri balloon Exam Vital Signs Temp Pulse Resp BP Pulse Ox O2 Del Method O2 Flow Rate 98.6 F 70 18 128/84 98 Room Air 1 01/29/25 12:00 01/29/25 12:05 01/29/25 12:00 01/29/25 12:05 01/29/25 12:00 01/29/25 12:00 01/29/25 00:25 Objective Labs 01/28/25 23:37 Labs: Laboratory Results - last 24 hr 01/28/25 23:37 WBC 12.0 H D RBC 3.19 L Hgb 9.3 L Hct 28.0 L MCV 88 MCH 29.2 MCHC 33.2 RDW Std Deviation 44.6 Plt Count 130 L Neut % (Auto) 86 H Lymph % (Auto) 8 L Yell % (Auto) 6 Eos % (Auto) 0 Baso % (Auto) 0 Neut # (Auto) 10.3 H Lymph # (Auto) 0.9 L Yell # (Auto) 0.7 Eos # (Auto) 0.0 Baso # (Auto) 0.0 Immature Gran # (Auto) 0.03 H Absolute Nucleated RBC 0.00 Immature Gran % 0 Nucleated RBC % 0 Impressions Impression: Bakri balloon deflated , 450 cc of saline removed, balloon removed, no significant bleeding seen, fundus firm Will observe patient for 30 minutes and if no significant bleeding will remove Moe catheter Sponge count was not performed prior to balloon placement and now that all instruments are removed from the uterus we will perform a x-ray to make sure there are no Raytec gauze in the uterus I explained this to the patient all questions answered Assessment & Plan Problem List (1) (normal spontaneous vaginal delivery): Status: Acute (2) Uterine atony, , current hospitalization: Status: Acute (3) hemorrhage: Status: Acute Time Spent With Patient Time: Total time spent is greater than 50% in coordination of care (as documented) at patient's floor/unit and/or counseling patient:
[2025-01-30] VITALS (13 sets, daily range): BP systolic 114–130; BP diastolic 73–90; PULSE 64–88; RESP 16–18; TEMP 36.7–37.2; O2SAT 97–99
[2025-01-30] MEDS: METHYLERGONOVINE 0.2 MG TABLET PO ×3 (00:27→12:44)
[2025-01-30 05:25] LABS: Basophils # (Auto) 0.0 Thou/mm3 (0.0-0.2); Basophils % (Auto) 0 % (0-2.5); Eosinophils # (Auto) 0.0 Thou/mm3 (0.0-0.5); Eosinophils % (Auto) 1 % (0-10); Hematocrit 21.5 % (36.0-46.0); Immature Granulocytes Auto 0.03 Thou/mm3 (0.00-0.00); Lymphocytes # (Auto) 1.3 Thou/mm3 (1.0-4.8); Lymphocytes % (Auto) 21 % (10-50); Mean Corpuscular HGB Conc 32.1 g/dl (31.0-37.0); Mean Corpuscular Hemoglobin 28.6 pg (25.0-35.0); Mean Corpuscular Volume 89 fL (80-100); Monocytes # (Auto) 0.4 Thou/mm3 (0.0-0.8); Monocytes % (Auto) 7 % (0-12); Neutrophils # (Auto) 4.3 Thou/mm3 (1.8-7.7); Neutrophils % (Auto) 71 % (37-80); Nucleated Red Blood Cell # 0.00 Thou/mm3 (0.00-0.00); Nucleated Red Blood Cell % 0 /100 WBC (0); Platelet Count 95 Thou/mm3 (140-440); RDW Standard Deviation 46.0 fL (36.4-46.3); Red Blood Count 2.41 Miln/mm3 (4.00-5.20); White Blood Count 6.1 Thou/mm3 (3.6-11.0)
[2025-01-30 05:34] LABS: Hemoglobin 6.9 g/dL (12.0-16.0)
--- NOTE | 2025-01-30 07:40 | ESPR_ITS ---
RE: ZOFIA DOS SANTOS : 2000 DATE OF SERVICE: 01/30/2025 day number 2. Postop day number 2. The patient denies any problem or complaint. She denies any excessive vaginal bleeding. She denies any dizziness or lightheadedness. She is voiding without difficulty. She is passing flatus. She denies any chest pain, palpitations, shortness of breath or lower extremity pain. Blood pressure 115/73, heart rate 64, respirations 18, temperature is 98.6. Lungs clear to auscultation bilaterally. Heart, regular rate rhythm. Abdomen, fundus is firm and nontender. Extremities nontender. Hemoglobin 6.9. ASSESSMENT: day number 2, status post spontaneous vaginal delivery complicated by uterine atony and hemorrhage, status post placement and removal of a Bakri balloon. Severe anemia, but hemodynamically stable. PLAN: Transfuse 2 units of packed red blood cells. Possible discharge home later today. I discussed with the patient the nature of her condition, the recommended treatment plan. All questions answered. DT: 07:22:25 TT: 07:38:00 Ref: [id number] - TID: [id number]
[2025-01-30] MEDS: DOCUSATE SOD 100 MG CAPSULE PO (08:30)
--- NOTE | 2025-01-30 15:31 | PC.NURSE ---
Dr. Borrego called to confirm if he would like a post tranfusion H&H, Per MD no need.
== END 2025-01-30 16:20 | disposition home or self-care (01) | DRG 541 ==
LOC: S4SX 17:06 → S4NX 17:12
PROVIDERS: Admitting Provider Specialist; PCP Family Medicine; Visit Provider Specialist
PROC: 10E0XZZ Delivery of Products of Conception, External Approach (ICD-10-PCS; CPT 57000; principal; 2025-01-28 16:30)
DX: O99.02 Anemia complicating childbirth (principal); D69.59 Other secondary thrombocytopenia; D50.9 Iron deficiency anemia, unspecified; O99.12 Other diseases of the blood and blood-forming organs and certain disorders involving the immune mechanism complicating childbirth; Z37.0 Single live birth; Z3A.38 38 weeks gestation of pregnancy; O70.1 Second degree perineal laceration during delivery; O72.1 Other immediate postpartum hemorrhage
CPT/HCPCS: 36415; 59409; 72190; 85025; 86780; 86850; 86900; 86901; 86923; 94762; J0689; J0690; J1885; J2210; J2250; J2590; J2795; J3010; J3490; J7050; J7120; P9016; S0191; A9270; J7999